=== PATIENT | female | born 2000 | race Two or more races ===

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

== ENCOUNTER 2019-01-14 19:39 | Outpatient (CLI) | payer OTHER ==
[~2019-01-14] VITALS: Ht 170.2 cm; Wt 113.5 kg
[2019-01-14 19:56] VITALS: BP 120/66
== END 2019-01-14 20:55 | disposition home or self-care (01) ==
LOC: M LDO 19:39
PROVIDERS: ATTEND Obstetrics & Gynecology
DX: O26.893 Other specified pregnancy related conditions, third trimester (principal); N89.8 Other specified noninflammatory disorders of vagina; Z3A.37 37 weeks gestation of pregnancy
CPT/HCPCS: 59025; G0378; G0463

== ENCOUNTER 2019-01-28 08:43 | Inpatient (IN) | payer OTHER ==
[2019-01-28] VITALS (22 sets, daily range): BP systolic 101–132; BP diastolic 52–95
[~2019-01-28] VITALS: Ht 170.2 cm; Wt 113.5 kg
[2019-01-28] MEDS ORDERED: LACTATED RINGER'S 1000 ML IV STA (09:39)
--- NOTE | 2019-01-28 10:04 | HPEPDOC ---
Obstetrical History & Physical General Date of Admission Jan 28, 2019 at 09:38 History of Present Illness 18 yo at 39+6 weeks gestation by 7+3 week US on [id number] presents to L&D with the complaint of a gush of clear fluid at ~0700 this AM followed by continuous leaking since. She denies any vaginal bleeding. She has some mild cramping but nothing significant. complicated by obesity (BMI~39), and testing positive for chlamydia on her new OB labs. She is s/p treatment and had a negative TETO. Chief Complaint: LOF, term Information Provided By: Patient Age: 18 : 1 Term: 0 Pre-term: 0 Abortions: 0 Livin Care Care: Good Care Dating Final EDC: Jan 29, 2019 Final EDC for Daily Update: Jan 29, 2019 Final EDC by: 1st trimester (US) (7+3 week US on 15Jun2018 set SULMA of [id number]\) 1st Trimester Date: Jun 15, 2018 Antepartum Course Diagnos(e)s Obesity (BMI~39) + chlamydia on new OB labs s/p treatment and negative TETO. Past Medical History Past Obstetrical History : Past Obstetrical History: Primgravida RN OR LVN History: History of STD (Positive chlamydia on new OB labs s/p treatment and negative TETO) Past Medical History Medical History Obesity Surgical History: Denies/None Family History Significant Family History: No pertinent family hx Family History Non contributory Social History Marital Status: Family situation: Spouse/partner home Psychosocial History: No pertinent psych hx * Smoker: non-smoker Alcohol: Denies Drugs: denies Imunizations Tdap status: current Influenza Status: current Allergies Coded Allergies: No Known Allergies (Unverified , 05/24/18) Medications No Active Prescriptions or Reported Meds Physical Examination Physical Examination Chaperoned by L&D RN GENERAL: Alert and oriented times three. ABDOMEN: Gravid and non-tender to touch. FETUS: Is vertex (VTX) by sterile vaginal examination (SVE) EXTREMITIES: No edema. PELVIC: Normal external genitalia. Speculum placed into the vagina. Pooling of large amount of clear fluid in vagina. Swab obtained, positive nitrazine, positive ferning on microscopy. Speculum removed. Cervix: 3/50/-2. Laboratory Data Urine Culture: No Growth, Contaminated (Contaminated) Pertinent Laboratoy Data Blood Type: O+ RBC Antibody Screen: Negative HIV: Negative Hepatitis B: Negative Hepatitis C: Unknown Rapid Plasma Reagin: Nonreactive Rubella: Immune Varicella: Immune Chlamydia/Gonorrhea: Positive (Positive for chlmaydia on new OB labs, s/p treatment and negative TETO) Group B Streptococcus: Negative Quad Screen Test: Unknown Cystic Fibrosis: Unknown Glucose Tolerance Test: 104 Anatomy Ultrasound Placenta Location: Anterior Normal Anatomy: Yes Placenta Previa: No Steroid Therapy Steroid Therapy: No Vaginal Examination Dilation: 3 cm Effacement: 50% Station: -2 Cervical Consistency: Medium Cervical Position: Middle Presentation: Cephalic presentation Position: Four quadrants, Vertex (occiput) (Vertex presenting ) Assessment Heart Rate (FHR): 120 Variability: Moderate Accelerations: Positive Decelerations: None Tocometer Contractions: No Assessment/Plan Assessment 18 yo at 39+6 weeks gestation presented to L&D with prelabor rupture of membranes at ~0700 this AM. Plan Admit to L&D. Apply IV fluids. If labor doesn't start within the next couple hours will start pitocin. GBS negative. Clear liquid diet. IV analgesia when in latent labor and epidural when in active labor. Anticipate . DO ABDULAZIZ Serna CHRISTOPHER J. DO Jan 28, 2019 10:04
[2019-01-28 10:42] LABS: BASO % 0.3 % (0.0-1.0); EOS # 0.1 10^3/uL (0.0-0.50); EOS % 1.1 % (0.0-3.0); HEMATOCRIT 35.7 % (36.0-47.0); HEMOGLOBIN 12.4 g/dl (12.0-15.5); LYMPH # 2.2 10^3/uL (1.5-6.5); LYMPH % 18.7 % (24.0-44.0); MEAN CORPUSCULAR HEMOGLOBIN 32.4 pg (27.0-33.0); MEAN CORPUSCULAR HGB CONC 34.7 g/dl (32.0-36.5); MEAN CORPUSCULAR VOLUME 93.2 fl (80.0-96.0); MONO # 0.8 10^3/uL (0.0-0.8); MONO % 7.1 % (0.0-5.0); NEUTROPHILS # 8.5 10^3/uL (1.8-7.7); NEUTROPHILS % 72.3 % (36.0-66.0); PLATELET COUNT, AUTOMATED 271 10^3/uL (150-450); RED BLOOD COUNT 3.83 10^6/uL (4.00-5.40); WHITE BLOOD COUNT 11.7 10^3/uL (4.0-10.0)
[2019-01-28] MEDS ORDERED: OXYTOCIN DRIP 30 UNITS in APPROPRIATE DILUENT 1 EA IV SCH (12:30)
[2019-01-28] MEDS ORDERED: BUTORPHANOL 2 MG/ML INJ (J0595) IV PRN (12:30)
[2019-01-28] MEDS: LR 1,000 ML IV SCH ×2 (14:42→17:02)
--- NOTE | 2019-01-28 20:23 | IPNPDOC ---
Text Note Date of Service The patient was seen on 01/28/19. NOTE Patient reporting increased pain. Cervix: 4/75/-2. Some difficulty maintaining FHR, but tracing is Cat I with moderate variability, +accels, no decels. Vitals stable, afebrile. Contractions regular, pitocin at 10mU. There has been some change since last exam, though not significant. Analgesia available if patient desires, either IV or epidural. Continue with pitocin. Safe to proceed. Roz Landers DO VS,Fly, I+O VS, Fly, I+O Laboratory Tests 01/28/19 10:29 Red Blood Count 3.83 L, Mean Corpuscular Volume 93.2, Mean Corpuscular Hemoglobin 32.4, Mean Corpuscular Hemoglobin Concent 34.7, Red Cell Distribution Width 12.3, Neutrophils (%) (Auto) 72.3 H, Lymphocytes (%) (Auto) 18.7 L, Monocytes (%) (Auto) 7.1 H, Eosinophils (%) (Auto) 1.1, Basophils (%) (Auto) 0.3, Neutrophils # (Auto) 8.5 H, Lymphocytes # (Auto) 2.2, Monocytes # (Auto) 0.8, Eosinophils # (Auto) 0.1, Basophils # (Auto) 0.0 Vital Signs Date Time Temp Pulse Resp B/P (MAP) Pulse Ox O2 Delivery O2 Flow Rate FiO2 01/28/19 19:34 98.7 89 122/83 (96) 01/28/19 09:05 18 ROZ LANDERS DO Jan 28, 2019 20:23
[2019-01-28] MEDS ORDERED: FENTANYL 2MCG/ML ROPIVACAINE 0.2% IN 0.9% NACL 100ML IVBAG As Ordered ONE (20:41)
[2019-01-28] MEDS ORDERED: REFRIGERATOR IV KEYS XX PRN (21:32)
[2019-01-28] MEDS: FENTANYL/ROPIVACAINE/NACL BAG 100 ML EPIDURAL SCH (21:32)
[2019-01-28] MEDS ORDERED: EPIDURAL/PCA KEYS XX PRN (21:32)
[2019-01-28] MEDS ORDERED: NALOXONE INJ 0.4 MG/1 ML VIAL (J2310) IV PRN (21:32)
[2019-01-28] MEDS ORDERED: diphenhydrAMINE INJ 50MG/ML VIAL (J1200) IV PRN (21:32)
[2019-01-28] MEDS ORDERED: LACTATED RINGER'S 1000 ML IV PRN (21:32)
[2019-01-28] MEDS ORDERED: ONDANSETRON 4MG/2ML VIAL (J2405) IV PRN (21:32)
[2019-01-28] MEDS ORDERED: ePHEDrine SULFATE 25 MG/5 ML(5MG/ML) SYRINGE IV PRN (21:32)
[2019-01-28] MEDS ORDERED: EPIDURAL COMMENT XX SCH (21:32)
[2019-01-29] VITALS (20 sets, daily range): BP systolic 84–139; BP diastolic 48–77
--- NOTE | 2019-01-29 01:14 | IPNPDOC ---
Text Note Date of Service The patient was seen on 01/29/19. NOTE Patient comfortable with epidural in place, but feeling some pressure. Cervix: /-1. FHR mostly Cat I with moderate variability, +accels. Earlier there was an isolated variable decel. Patient progressing well. Continue with pitocin. Safe to proceed. DO Anshul VS,Fly, I+O VS, Fly, I+O Laboratory Tests 01/28/19 10:29 Red Blood Count 3.83 L, Mean Corpuscular Volume 93.2, Mean Corpuscular Hemoglobin 32.4, Mean Corpuscular Hemoglobin Concent 34.7, Red Cell Distribution Width 12.3, Neutrophils (%) (Auto) 72.3 H, Lymphocytes (%) (Auto) 18.7 L, Monocytes (%) (Auto) 7.1 H, Eosinophils (%) (Auto) 1.1, Basophils (%) (Auto) 0.3, Neutrophils # (Auto) 8.5 H, Lymphocytes # (Auto) 2.2, Monocytes # (Auto) 0.8, Eosinophils # (Auto) 0.1, Basophils # (Auto) 0.0 Vital Signs Date Time Temp Pulse Resp B/P (MAP) Pulse Ox O2 Delivery O2 Flow Rate FiO2 01/28/19 22:37 73 113/71 (85) 01/28/19 21:57 98.2 01/28/19 09:05 18 I&O- Last 24 Hours up to 6 AM 01/29/19 06:00 Intake Total 800 ml Output Total 300 ml Balance 500 ml ROZ CINTRON DO Jan 29, 2019 01:14
[2019-01-29] MEDS: LR 1,000 ML IV SCH (04:17)
[2019-01-29] MEDS: FENTANYL/ROPIVACAINE/NACL BAG 100 ML EPIDURAL SCH (04:39)
--- NOTE | 2019-01-29 05:38 | IPNPDOC ---
Text Note Date of Service The patient was seen on 01/29/19. NOTE Presented to room for assessment. Patient comfortable, not feeling much pre ssure. Normal vital signs, afebrile. Cervix: Al/C/0. FHR Cat I with moderate variability, +accels, no decels. Patient progressing well. Safe to proceed. Roz Landers DO VS,Fly, I+O VS, Fishbone, I+O Laboratory Tests 01/28/19 10:29 Red Blood Count 3.83 L, Mean Corpuscular Volume 93.2, Mean Corpuscular Hemoglobin 32.4, Mean Corpuscular Hemoglobin Concent 34.7, Red Cell Distribution Width 12.3, Neutrophils (%) (Auto) 72.3 H, Lymphocytes (%) (Auto) 18.7 L, Monocytes (%) (Auto) 7.1 H, Eosinophils (%) (Auto) 1.1, Basophils (%) (Auto) 0.3 , Neutrophils # (Auto) 8.5 H, Lymphocytes # (Auto) 2.2, Monocytes # (Auto) 0.8, Eosinophils # (Auto) 0.1, Basophils # (Auto) 0.0 Vital Signs Date Time Temp Pulse Resp B/P (MAP) Pulse Ox O2 Delivery O2 Flow Rate FiO2 01/29/19 04:32 98.2 68 99/56 (70) 01/28/19 09:05 18 I&O- Last 24 Hours up to 6 AM 01/29/19 06:00 Intake Total 1200 ml Output Total 1050 ml Balance 150 ml ROZ LANDERS DO Jan 29, 2019 05:38
[2019-01-29] MEDS ORDERED: OXYTOCIN DRIP 30 UNITS in APPROPRIATE DILUENT 1 EA IV SCH (06:57)
[2019-01-29] MEDS ORDERED: ACETAMINOPHEN TAB 650MG DOSE (2X325MG) PO PRN (07:00)
[2019-01-29] MEDS ORDERED: PROMETHAZINE 25 MG TAB PO PRN (07:00)
[2019-01-29] MEDS ORDERED: MEASLES,MUMPS,RUBELLA VACCINE INJ (MMR-II) (90707) SC SCH (07:00)
[2019-01-29] MEDS ORDERED: DOCUSATE SODIUM 100 MG CAP PO PRN (07:00)
[2019-01-29] MEDS ORDERED: DIBUCAINE 1% OINTMENT 30GM TOP PRN (07:00)
[2019-01-29] MEDS ORDERED: ACETAMINOPHEN 500 MG TAB PO PRN (07:00)
[2019-01-29] MEDS ORDERED: IBUPROFEN 600 MG TAB PO PRN (07:00)
[2019-01-29] MEDS ORDERED: RHOGAM 300 MCG (1500 IU) INJ (J2790) IM SCH (07:00)
--- NOTE | 2019-01-29 07:02 | DNPDOC ---
[facility] Delivery Note Delivery Note DATE OF DELIVERY: 29Jan2019 at ~0645 PREDELIVERY DIAGNOSIS: 40+0 weeks gestation with PROM and then pitocin IOL POST DELIVERY DIAGNOSIS: Delivered. PROCEDURE: Spontaneous vaginal delivery MAINTENANCE AND ENGINEERING MANAGER: Dr. Landers ANESTHESIA: None ESTIMATED BLOOD LOSS: 200 mL. FINDINGS: Viable female infant, 7lbs 13oz (3540 grams), Apgars 9/9 DELIVERY SUMMARY: Presented to room as patient was pushing well to +3 station. The bed was broken down and she was prepped for delivery. With excellent maternal pushing effort her infant delivered. presentation was JOSELYN with restitution to LOT. The right anterior shoulder delivered with gentle traction followed easily by the remainder of the body. There was a left compound hand with delivery. The infant was dried and stimulated on the field and a bulb suction was used. The infant was placed on the maternal abdomen and cried vigorously. The three vessel cord was then clamped and cut by the FOB after delia ropriate time delay. Third stage was then completed with gentle traction on the cord and it was productive of an intact placenta. The uterine fundus was firmed with massage and pitocin was administered IV bolus. Inspection of the vagina, perineum, and cervix revealed a left vaginal side wall laceration and a right sublabial laceration. These were repaired with 3-0 and 4-0 vicryl suture respectively in the usual fashion. There was excellent cosmesis and hemostasis. The fundus was palpated again and was firm. Sponge, instrument, and needle counts were correct X2. Mother stable when I left the room. DO ABDULAZIZ Serna CHRISTOPHER J. DO Jan 29, 2019 07:02
[2019-01-29] MEDS: PRENATAL VITAMINS CHEWABLE TABLET PO SCH (09:07)
[2019-01-29] MEDS: IBUPROFEN 800 MG TAB PO PRN ×2 (09:08→17:12)
--- NOTE | 2019-01-30 06:18 | IPNPDOC ---
Text Note Date of Service The patient was seen on 01/30/19. NOTE PPD1 States feeling well, pain controlled with prescribed meds. Baby bonding and feeding well. No heavy VB. Lochia slowing. Ambulatory. Tolerating PO without issues. Voiding spont. No CP/LP/SOB. VSSAF NAD A&O LE no C/C/E Ut at U-2, firm a/p: Doing well. Cont routine care. D/C likely tomorrow. Sessions VSFly, I+O VSFly I+O Vital Signs Date Time Temp Pulse Resp B/P (MAP) Pulse Ox O2 Delivery O2 Flow Rate FiO2 01/29/19 18:00 98.1 75 18 117/63 (81) I&O- Last 24 Hours up to 6 AM 01/30/19 06:00 Intake Total 1650 ml Output Total 700 ml Balance 950 ml BEN ARGUETA MD Jan 30, 2019 06:18
[2019-01-30 06:46] VITALS: BP 106/55
[2019-01-30] MEDS: PRENATAL VITAMINS CHEWABLE TABLET PO SCH (08:24)
[2019-01-30 18:00] VITALS: BP 119/75
[2019-01-31 06:00] VITALS: BP 100/58
[2019-01-31] MEDS ORDERED: ACET-683 PO (07:28)
[2019-01-31] MEDS ORDERED: IBUP80TA PO (07:28)
[2019-01-31] MEDS ORDERED: DIBU10OI TOP (07:28)
[2019-01-31] MEDS ORDERED: COLA100C5 PO (07:28)
[2019-01-31] MEDS ORDERED: PRENCHW PO (07:28)
[2019-01-31] MEDS: PRENATAL VITAMINS CHEWABLE TABLET PO SCH (08:45)
== END 2019-01-31 10:46 | disposition home or self-care (01) | DRG 806 ==
LOC: M LDO 08:43 → M LDI 09:38 → M OBS 01-29 09:31
PROVIDERS: ADMIT Obstetrics & Gynecology; ATTEND Obstetrics & Gynecology
PROC: 10E0XZZ Delivery of Products of Conception, External Approach (ICD-10-PCS; principal; 2019-01-29)
PROC: 0HQ9XZZ Repair Perineum Skin, External Approach (ICD-10-PCS; 2019-01-29)
DX: O48.0 Post-term pregnancy (principal); Z37.0 Single live birth; O98.32 Other infections with a predominantly sexual mode of transmission complicating childbirth; Z3A.40 40 weeks gestation of pregnancy; O70.0 First degree perineal laceration during delivery; A56.8 Sexually transmitted chlamydial infection of other sites; O32.6XX0 Maternal care for compound presentation, not applicable or unspecified